=== PATIENT | male | born 1970 | race Caucasian/White ===

== ENCOUNTER 2017-10-13 11:59 | Emergency (ER) | payer BC ==
[2017-10-13 12:39] VITALS: BP 135/98
[2017-10-13] MEDS ORDERED: Tetan/Diph/Pertus SYR(Tdap)* 0.5 ML SYR(BOOSTRIX) use SYR IM ONE (12:44)
[2017-10-13] MEDS ORDERED: Lidocaine 2% PF * 5 ML VIAL INJ ONE (12:45)
--- NOTE | 2017-10-13 13:15 | UC ---
Skin Complaint HPI - HPI Summary HPI Summary: WOOD SLIVER EMBEDDED DEEP UNDER NAIL BED OF RIGHT INDEX FINGER SINCE YESTERDAY. UNABLE TO GET DEEPEST PART OUT. - History of Current Complaint Chief Complaint: UCSkin Time Seen by Provider: 10/13/17 12:06 Stated Complaint: RIGHT INDEX FINGER COMPLAINT Hx Obtained From: Patient Onset/Duration: Sudden Onset, Lasting Hours Skin Exposure Onset/Duration: Hours Ago Onset Severity: Mild Current Severity: Mild Location: Discrete - RIGHT SECOND FINGER Character: Painful Aggravating Factor(s): Touch Alleviating Factor(s): Nothing Associated Signs & Symptoms: Positive: Tenderness. Negative: Drainage, Red Streaks Related History: Trauma - Allergy/Home Medications Allergies/Adverse Reactions: Allergies Allergy/AdvReac Type Severity Reaction Status Date / Time No Known Allergies Allergy Verified 10/13/17 12:30 Review of Systems Constitutional: Negative Skin: Other - WOOD SLIVER UNDER FINGER NAIL OF RIGHT INDEX FINGER Eyes: Negative ENT: Negative Respiratory: Negative Cardiovascular: Negative Gastrointestinal: Negative Genitourinary: Negative Motor: Negative Neurovascular: Negative Musculoskeletal: Negative Neurological: Negative Psychological: Negative Is Patient Immunocompromised?: No All Other Systems Reviewed And Are Negative: Yes PMH/Surg Hx/FS Hx/Imm Hx Previously Healthy: Yes - Surgical History Surgical History: Yes Surgery Procedure, Year, and Place: Hydrocele Repair as a child. Aortic Valve Replacement, 2008, [facility] - Family History Known Family History: Negative: Blood Disorder - Social History Occupation: Employed Full-time Lives: With Family Alcohol Use: Occasionally Substance Use Type: None Smoking Status (MU): Never Smoked Tobacco Physical Exam Triage Information Reviewed: Yes Appearance: Well-Appearing, No Pain Distress, Well-Nourished Vital Signs: Initial Vital Signs Temp 98 F 10/13/17 12:31 Pulse 80 10/13/17 12:31 Resp 18 10/13/17 12:31 BP 135/98 10/13/17 12:31 Pulse Ox 98 10/13/17 12:31 Vital Signs Reviewed: Yes Eye Exam: Normal ENT Exam: Normal Dental Exam: Normal Neck exam: Normal Neck: Positive: Supple, Nontender Respiratory Exam: Normal Respiratory: Positive: Chest non-tender, Lungs clear, Normal breath sounds, No respiratory distress, No accessory muscle use Cardiovascular Exam: Normal Cardiovascular: Positive: RRR, No Murmur, Pulses Normal, Brisk Capillary Refill Abdominal Exam: Normal Musculoskeletal Exam: Normal Musculoskeletal: Positive: Strength Intact, ROM Intact Neurological Exam: Normal Psychological Exam: Normal Skin: Positive: Other - WOOD SLIVER UNDER FINGER NAIL OF RIGHT INDEX FINGER - Additional Comments SLIVER REMOVED USING DIGITAL BLOCK OF RIGHT INDEX FINGER WITH 5mL 2% LIDOCAINE. TISSUE SURROUNDING SLIVER LOSSENED USING BLUNT DISSECTION AND STERILE TECHNIQUE WITH THIN FORCEPS. SLIVER THEN REMOVED WITH THIN FORCEPS. PATIENT TOLERATED PROCEDURE WELL. TETANUS SHOT ADMINISTERED. Course/Dx - Differential Diagnoses - Skin Complaint Differential Diagnoses: Abscess, Cellulitis - Diagnoses Provider Diagnoses: WOOD SLIVER UNDER FINGER NAIL OF RIGHT INDEX FINGER WITH REMOVAL OF FB. Discharge - Discharge Plan Condition: Stable Disposition: HOME Patient Education Materials: Soft Tissue Foreign Body (ED) Referrals: Jose Alberto Ferrera MD [Primary Care Provider] - Images Hands: 1 - 0.4CM X 0.1CM WOOD SLIVER UNDER FINGER NAIL OF RIGHT INDEX FINGER
== END 2017-10-13 13:32 | disposition home or self-care (01) ==
LOC: UCCORT 11:59
DX: S60.450A Superficial foreign body of right index finger, initial encounter (principal); W45.8XXA Other foreign body or object entering through skin, initial encounter; Y93.9 Activity, unspecified; Y92.9 Unspecified place or not applicable; Z23 Encounter for immunization; Z95.2 Presence of prosthetic heart valve
CPT/HCPCS: 10120; 90471; 90715; 99201; G0463